=== PATIENT | female | born 1945 | race Caucasian/White ===

== ENCOUNTER → 2025-05-29 | Day surgery (SDC) | payer MEDICARE, BC ==
[~2025-05-29] MED LIST: Flumazenil 0.1 MG/ML 5 ML MDV ONE; Ketamine 200 MG/20 ML MDV ONE; Midazolam 1 MG/ML 2 ML SDV ONE; Propofol 200 MG/20 ML SDV ONE; fentaNYL 50 MCG/ML SDV ONE
[2025-05-29] MEDS: Lactated Ringers 1,000 ML IV SCH (09:07)
[2025-05-29 10:28] VITALS: BP 137/51; PULSE 51
== END ==
LOC: CC.SDS 08:44
PROVIDERS: ATTEND Family Medicine
DX: D12.3 Benign neoplasm of transverse colon (principal); K63.89 Other specified diseases of intestine; K57.30 Diverticulosis of large intestine without perforation or abscess without bleeding; K64.8 Other hemorrhoids; F41.9 Anxiety disorder, unspecified; F32.A Depression, unspecified; Z88.8 Allergy status to other drugs, medicaments and biological substances; Z79.899 Other long term (current) drug therapy
CPT/HCPCS: 00811; 45380; 45385; 99100; J2250; J2704; J3010; J3490; J7120; 88305